=== PATIENT | male | born 1930 | race Caucasian/White ===

== ENCOUNTER → 2016-09-08 | Outpatient (CLI) | payer MEDICARE ==
[~2016-09-08] MED LIST: /IPRAINH INH; /MEMA10TA PO; /MOXI40TA PO; /PANT40TA PO; ACET500T PO; ARIC10TA PO; ASPI81TA85 PO; BISA10SU30 PR; BISAC5TA PO; CRES20TA PO; DOCU10ELUD PO; ENAL10TA2 PO; GLIP5TAB2 PO; MOM30SS PO; MULTTAB4 PO; NITR0.4D6 TD; TYLE325T5 PO; VENTAER IN
--- NOTE | 2016-09-08 15:36 | REP ---
Right shoulder series: Four views. History: Contusion. Findings: Four views of the right shoulder demonstrate dystrophic soft tissue calcific deposits in the periarticular soft tissues consistent with calcific tendonitis or bursitis. 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 Some inferior acromion process spurring is also noted. The distal clavicle is superiorly positioned relative to the acromion process consistent with a previous AC joint separation injury. No fracture is seen. Impression: No fracture noted. Evidence of old AC separation injury and osteoarthritis at the AC joint. Periarticular soft tissue calcific deposits. Signed by Rob Ozuna MD 09/08/2016 05:00 P
--- NOTE | 2016-09-08 15:37 | REP ---
Right clavicle series: Two views. History: Contusion. Findings: AP and tube angled views of the right clavicle show no evidence of fracture. 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 There is osteoarthritis at the AC joint. Periarticular soft tissues are seen adjacent to the proximal humerus consistent with calcific tendonitis or bursitis. Impression: No fracture seen. Osteoarthritic changes and dystrophic soft-tissue calcification. Signed by Rob Ozuna MD 09/08/2016 05:01 P
== END ==
LOC: M WUC 13:17
PROVIDERS: ATTEND Physician Assistant
DX: S40.011A Contusion of right shoulder, initial encounter (principal); X58.XXXA Exposure to other specified factors, initial encounter; Y92.89 Other specified places as the place of occurrence of the external cause